=== PATIENT | female | born 1990 | race Caucasian/White ===

== ENCOUNTER → 2017-04-07 | Outpatient (CLI) | payer OTHER ==
[2017-04-07 09:44] LABS: BLOOD UREA NITROGEN 15 mg/dL (7-18)
[2017-04-07 10:08] LABS: ASPARTATE AMINO TRANSFERASE 17 U/L (15-37)
== END | disposition home or self-care (01) ==
LOC: LAB 09:20
PROVIDERS: ATTEND Nurse Practitioner
DX: Z00.01 Encounter for general adult medical examination with abnormal findings (principal); E66.09 Other obesity due to excess calories
CPT/HCPCS: 36415; 80053; 80061; 82306; 82607; 82746; 84443; 85025

== ENCOUNTER 2018-11-23 12:54 | Outpatient (CLI) | payer OTHER | END 2018-11-23 23:59 | disposition home or self-care (01) | LOC: LAB 12:54 | PROVIDERS: ATTEND Nurse Practitioner | DX: Z02.9 Encounter for administrative examinations, unspecified (principal) ==

== ENCOUNTER → 2018-11-28 | Outpatient (CLI) | payer OTHER ==
[2018-11-28 08:48] LABS: BASOPHILS # (AUTO) 0.03 x10^3/uL (0-0.1); BASOPHILS % (AUTO) 1 % (0-1); EOSINOPHILS # (AUTO) 0.04 x10^3/uL (0-0.4); EOSINOPHILS % (AUTO) 1 % (1-7); LYMPHOCYTES # (AUTO) 2.06 x10^3/uL (1-3.4); LYMPHOCYTES % (AUTO) 41 % (22-44); MD NO; MEAN CORPUSCULAR HEMOGLOBIN 30.4 pg (27.0-34.8); MEAN CORPUSCULAR VOLUME 89.3 fL (80-100); MEAN PLATELET VOLUME 6.9 fL (7.4-10.4); MONOCYTES # (AUTO) 0.28 x10^3/uL (0.2-0.8); MONOCYTES % (AUTO) 6 % (2-9); NEUTROPHILS # (AUTO) 2.63 x10^3/uL (1.8-6.8); NEUTROPHILS % (AUTO) 52 % (42-75); PLATELET COUNT 310 x10^3/uL (130-400); RED BLOOD COUNT 4.95 x10^6/uL (3.82-5.3); RED CELL DISTRIBUTION WIDTH 13.5 % (9.6-15.2)
[2018-11-28 08:56] LABS: ALBUMIN 3.5 g/dL (3.4-5.0); CHLORIDE 110 mmol/L (98-107); CREATININE 0.94 mg/dL (0.55-1.02)
[2018-11-28 09:02] LABS: HEMOGLOBIN A1C 5.4 % (4.2-6.3)
[2018-11-28 09:04] LABS: ALANINE AMINOTRANSFERASE 23 U/L (12-78); ALKALINE PHOSPHATASE 86 U/L (45-117); ANION GAP 6 mmol/L (5-15); BILIRUBIN,TOTAL 0.2 mg/dL (0.2-1.0); CALCIUM 8.4 mg/dL (8.5-10.1); CHOL/HDL RATIO 3.8; CHOLESTEROL, TOTAL 154 mg/dL (140-239); FREE T4 (FREE THYROXINE) 1.06 ng/dL (0.76-1.46); HDL CHOL % 27 % (28-40); HDL CHOLESTEROL (DIRECT) 41 mg/dL (40-60); LDL CHOLESTEROL,CALCULATED 99 mg/dL (54-169); LDL/HDL RATIO 2.4 (0.5-3.0); THYROID STIMULATING HORMONE 0.919 mIU/L (0.358-3.740); TOTAL PROTEIN 7.2 g/dL (6.4-8.2); TRIGLYCERIDES 72 mg/dL (50-200); VLDL CHOLESTEROL 14 mg/dL (0-25)
== END | disposition home or self-care (01) ==
LOC: LAB 08:31
PROVIDERS: ATTEND Nurse Practitioner
DX: Z00.00 Encounter for general adult medical examination without abnormal findings (principal); E66.09 Other obesity due to excess calories
CPT/HCPCS: 36415; 80053; 80061; 83036; 84439; 84443; 85025

== ENCOUNTER → 2021-02-02 | Outpatient (CLI) | payer OTHER ==
[2021-02-02 07:53] LABS: BASOPHILS % (AUTO) 1 % (0-1); EOSINOPHILS % (AUTO) 1 % (1-7); LYMPHOCYTES % (AUTO) 34 % (22-44); MEAN CORPUSCULAR HEMOGLOBIN 30.7 pg (27.0-34.8); MEAN PLATELET VOLUME 6.6 fL (7.4-10.4); MONOCYTES % (AUTO) 7 % (2-9); NEUTROPHILS % (AUTO) 57 % (42-75); PLATELET COUNT 295 x10^3/uL (130-400); RED BLOOD COUNT 4.73 x10^6/uL (3.82-5.3); RED CELL DISTRIBUTION WIDTH 13.1 % (9.6-15.2)
[2021-02-02 07:54] LABS: MD NO
[2021-02-02 08:04] LABS: ALBUMIN 3.7 g/dL (3.4-5.0); ANION GAP 4 mmol/L (5-15); CALCIUM 8.6 mg/dL (8.5-10.1); CHLORIDE 108 mmol/L (98-107)
[2021-02-02 08:18] LABS: ALANINE AMINOTRANSFERASE 24 U/L (12-78); ALKALINE PHOSPHATASE 68 U/L (45-117); BILIRUBIN,TOTAL 0.5 mg/dL (0.2-1.0); CHOL/HDL RATIO 4.4; CHOLESTEROL, TOTAL 170 mg/dL (140-239); CREATININE 0.91 mg/dL (0.55-1.02); HDL CHOL % 23 % (28-40); HDL CHOLESTEROL (DIRECT) 39 mg/dL (40-60); LDL CHOLESTEROL,CALCULATED 112 mg/dL (54-169); LDL/HDL RATIO 2.9 (0.5-3.0); TOTAL PROTEIN 7.3 g/dL (6.4-8.2); TRIGLYCERIDES 93 mg/dL (50-200); VLDL CHOLESTEROL 19 mg/dL (0-25)
== END | disposition home or self-care (01) ==
LOC: LAB 07:37
PROVIDERS: ATTEND Physician Assistant
DX: Z13.1 Encounter for screening for diabetes mellitus (principal); Z13.220 Encounter for screening for lipoid disorders; Z00.00 Encounter for general adult medical examination without abnormal findings; R63.5 Abnormal weight gain; Z76.89 Persons encountering health services in other specified circumstances
CPT/HCPCS: 36415; 80053; 80061; 83036; 84443; 85025